=== PATIENT | male | born 1995 | race Caucasian/White ===

== ENCOUNTER 2023-11-20 02:32 | Inpatient (IN) | payer MEDICAID ==
[~2023-11-20] VITALS: Ht 170.2 cm; Wt 68.9 kg
[~2023-11-20 02:32] MED LIST: CLON0.1T2 PO
[2023-11-20 03:54] LABS: COVID AG,FIA SOURCE NASAL SWAB
[2023-11-20 03:56] LABS: SARS-COV2 (COVID) ANTIGEN,FIA Negative (Negative)
[2023-11-20] MEDS: HALOPERIDOL LACTATE 5 MG/ML VIAL IM ONE (04:12)
[2023-11-20] MEDS: LORazepam 2 MG/ML VIAL IM ONE (04:12)
[2023-11-20] MEDS: DiphenhydrAMINE HCL 50 MG/ML VIAL IM ONE (04:13)
[2023-11-20 06:05] LABS: BASOPHILS % (AUTO) 0.1 % (0.0-2.0); EOSINOPHILS % (AUTO) 0.7 % (1.0-6.0); HEMATOCRIT 38.5 % (41-53); HEMOGLOBIN 12.7 g/dL (13.5-17.5); LYMPHOCYTES # (AUTO) 1.8 K/uL (1.0-4.8); LYMPHOCYTES % (AUTO) 11.3 % (22.0-44.0); MEAN CORPUSCULAR HEMOGLOBIN 29.1 pg (26.0-34.0); MEAN CORPUSCULAR HGB CONC 33.1 G/dL (31.0-37.0); MEAN CORPUSCULAR VOLUME 88 fL (80-100); MONOCYTES # (AUTO) 1.1 K/uL (0.1-1.0); MONOCYTES % (AUTO) 7.3 % (2.0-9.0); NEUTROPHILS # (AUTO) 12.5 K/uL (1.8-7.7); NEUTROPHILS % (AUTO) 80.6 % (40.0-70.0); PLATELET COUNT (AUTO) 287 K/uL (150-450); RED BLOOD CELL COUNT(AUTO) 4.38 MIL/uL (4.50-5.90); RED CELL DISTRIBUTION WIDTH 13.3 % (11.5-14.5); WHITE BLOOD COUNT (AUTO) 15.5 K/uL (4.5-11.0)
[2023-11-20 06:54] LABS: ALCOHOL, BLOOD (SERUM) < 3 mg/dL (0-10)
[2023-11-20 07:26] LABS: ANION GAP 11 mmol/L (8-16); CALCIUM, TOTAL 8.5 mg/dL (8.8-10.5); CARBON DIOXIDE 23 mmol/L (22-29); CHLORIDE 105 mmol/L (98-107); CREATININE 0.69 mg/dL (0.60-1.30); GLOMERULAR FILTR. RATE CALC > 60 mL/min (>60); GLUCOSE,RANDOM 128 mg/dL (70-110); POTASSIUM 3.4 mmol/L (3.5-5.1); SODIUM SERUM 139 mmol/L (136-145); UREA NITROGEN, BLOOD 14 mg/dL (7-18)
[2023-11-20 07:32] LABS: ALANINE AMINOTRANSFERASE 28 U/L (12-78); ALBUMIN 3.2 g/dL (3.4-5.0); ALKALINE PHOSPHATASE 75 U/L (46-116); ASPARTATE AMINOTRANSFERASE 21 U/L (15-37); BILIRUBIN,TOTAL 0.4 mg/dL (0.1-1.0); TOTAL PROTEIN, SERUM 6.1 g/dL (6.4-8.2)
[2023-11-20 10:09] VITALS: BP 110/52; PULSE 80; RESP 20; TEMP 96.3
[2023-11-20 10:31] VITALS: BP 110/52; PULSE 80; RESP 20; TEMP 96.3
[2023-11-20] MEDS: BACITRACIN 28 GM OINTMENT TP SCH (18:16)
[2023-11-20] MEDS: QUEtiapine FUMARATE 100 MG TABLET PO SCH (20:22)
[2023-11-20] MEDS: TraZODone HCL 50 MG TABLET PO SCH (20:22)
[2023-11-20] MEDS: POTASSIUM CHLORIDE 20 MEQ ER TABLET PO ONE (21:22)
[2023-11-20 23:31] VITALS: BP 114/64; PULSE 78; RESP 18; TEMP 97.2
[2023-11-21] MEDS ORDERED: GuaiFENesin/D-METHORPHAN [SUGAR-FREE] 200-20MG/10 ML SYRUP UDCUP PO PRN (06:45)
[2023-11-21] MEDS ORDERED: LOPERAMIDE HCL 2 MG CAPSULE PO PRN (06:45)
[2023-11-21] MEDS ORDERED: PETROLATUM,WHITE 28 GM JELLY TP PRN (06:45)
[2023-11-21] MEDS ORDERED: ONDANSETRON HCL 4 MG TABLET PO PRN (06:45)
[2023-11-21] MEDS ORDERED: DOCUSATE SODIUM 100 MG CAPSULE PO PRN (06:45)
[2023-11-21] MEDS ORDERED: IBUPROFEN 400 MG TABLET PO PRN (06:45)
[2023-11-21] MEDS ORDERED: CloNIDine HCL 0.1 MG TABLET PO PRN (06:45)
[2023-11-21] MEDS ORDERED: MAG HYDROX/ALUMINUM HYD/SIMETH ES 30 ML SUSPENSION UDCUP PO PRN (06:45)
[2023-11-21] MEDS ORDERED: ACETAMINOPHEN 325 MG TABLET PO PRN (06:45)
[2023-11-21] MEDS ORDERED: MAGNESIUM HYDROXIDE SUSPENSION 30 ML UDCUP PO PRN (06:45)
[2023-11-21] MEDS ORDERED: ALBUTEROL SULFATE HFA 90 MCG/PUFF 8 GM INHALER IH PRN (06:45)
[2023-11-21] MEDS: HALOPERIDOL 5 MG TABLET PO PRN (08:10)
[2023-11-21] MEDS: LORazepam 2 MG TABLET PO PRN (08:10)
[2023-11-21 10:08] VITALS: BP 111/66; PULSE 102; RESP 18; TEMP 97.7
[2023-11-21] MEDS: NICOTINE 14 MG/24 HOUR PATCH TD PRN (12:04)
[2023-11-21 19:15] LABS: APPEARANCE,URINE CLEAR (CLEAR); BILIRUBIN,URINE NEGATIVE (NEGATIVE); COLOR,URINE LIGHT YELLOW (YELLOW); GLUCOSE, URINE (UA) NEGATIVE (NEGATIVE); KETONES,URINE NEGATIVE (NEGATIVE); LEUKOCYTE ESTERASE ,URINE NEGATIVE (NEGATIVE); NITRATE,URINE NEGATIVE (NEGATIVE); OCCULT BLOOD,URINE NEGATIVE (NEGATIVE); PH,URINE 5.5 (5.0-8.0); PH,URINE DRUG SCREEN 5.5 (5.0-8.0); PROTEIN,URINE NEGATIVE (NEGATIVE); SPECIFIC GRAVITIY, URINE 1.015 (1.003-1.030); UROBILINOGEN,URINE <=1.0 mg/dL (<=1.0)
[2023-11-21 19:21] LABS: ALCOHOL, URINE DRUG SCREEN NEGATIVE (NEGATIVE); AMPHET/METH SCREEN,URINE POSITIVE (NEGATIVE); BARBITURATE SCREEN, URINE NEGATIVE (NEGATIVE); BENZODIAZEPINES SCREEN,URINE NEGATIVE (NEGATIVE); CANNABINOID SCREEN,URINE POSITIVE (NEGATIVE); COCAINE SCREEN,URINE NEGATIVE (NEGATIVE); METHADONE SCREEN, URINE NEGATIVE (NEGATIVE); OPIATE SCREEN,URINE NEGATIVE (NEGATIVE); PHENCYCLIDINE SCREEN,URINE NEGATIVE (NEGATIVE)
[2023-11-21] MEDS: QUEtiapine FUMARATE 200 MG TABLET PO SCH (20:53)
[2023-11-21 21:43] VITALS: RESP 18
[2023-11-22 07:47] LABS: BASOPHILS % (AUTO) 0.2 % (0.0-2.0); EOSINOPHILS % (AUTO) 4.4 % (1.0-6.0); HEMATOCRIT 43.8 % (41-53); HEMOGLOBIN 14.8 g/dL (13.5-17.5); LYMPHOCYTES # (AUTO) 2.2 K/uL (1.0-4.8); LYMPHOCYTES % (AUTO) 40.7 % (22.0-44.0); MEAN CORPUSCULAR HGB CONC 33.9 G/dL (31.0-37.0); MEAN CORPUSCULAR VOLUME 89 fL (80-100); MONOCYTES # (AUTO) 0.4 K/uL (0.1-1.0); NEUTROPHILS # (AUTO) 2.6 K/uL (1.8-7.7); NEUTROPHILS % (AUTO) 47.7 % (40.0-70.0); PLATELET COUNT (AUTO) 318 K/uL (150-450); RED BLOOD CELL COUNT(AUTO) 4.94 MIL/uL (4.50-5.90); RED CELL DISTRIBUTION WIDTH 13.4 % (11.5-14.5); WHITE BLOOD COUNT (AUTO) 5.5 K/uL (4.5-11.0)
[2023-11-22 07:55] LABS: HEMOGLOBIN A1C 5.3 % (3.8-5.6)
[2023-11-22 08:16] LABS: CHOL/HDL RATIO 2.5 (4.2-7.3); THYROID STIMULATING HORMONE 0.53 uIU/mL (0.36-3.74)
[2023-11-22 09:58] VITALS: BP 109/57; PULSE 93; RESP 17; TEMP 97.8
[2023-11-22 20:25] VITALS: RESP 18
[2023-11-23 08:50] VITALS: BP 108/81; PULSE 79; RESP 18; TEMP 97
[2023-11-23 20:50] VITALS: BP 105/62; PULSE 87; RESP 18; TEMP 98.3
[2023-11-23] MEDS: ZOLPIDEM TARTRATE 10 MG TABLET PO PRN (21:55)
[2023-11-24 17:44] VITALS: BP 105/58; PULSE 94; RESP 16; TEMP 96.9
[2023-11-24 20:54] VITALS: BP 101/61; PULSE 87; RESP 18; TEMP 98
[2023-11-25] MEDS ORDERED: TRAZ-252 PO (09:10)
[2023-11-25] MEDS ORDERED: QUET200T30 PO (09:10)
[2023-11-25 12:10] VITALS: BP 91/70; PULSE 61; RESP 17; TEMP 97.8
== END 2023-11-25 13:35 | disposition home or self-care (01) | DRG 750 ==
LOC: EMS 03:03 → 3EC 07:29
PROVIDERS: ADMIT Psychiatry & Neurology Psychiatry; ATTEND Psychiatry & Neurology Psychiatry
PROC: GZHZZZZ Group Psychotherapy (ICD-10-PCS; principal; 2023-11-21)
PROC: GZ51ZZZ Individual Psychotherapy, Behavioral (ICD-10-PCS; 2023-11-21)
DX: F25.0 Schizoaffective disorder, bipolar type (principal); E83.51 Hypocalcemia; R45.851 Suicidal ideations; F15.10 Other stimulant abuse, uncomplicated; F41.9 Anxiety disorder, unspecified; D72.829 Elevated white blood cell count, unspecified; E87.6 Hypokalemia; G47.00 Insomnia, unspecified; Z59.00 Homelessness unspecified; F17.210 Nicotine dependence, cigarettes, uncomplicated; F11.90 Opioid use, unspecified, uncomplicated; F12.90 Cannabis use, unspecified, uncomplicated; Z20.822 Contact with and (suspected) exposure to COVID-19; D64.9 Anemia, unspecified; R73.9 Hyperglycemia, unspecified; Z79.899 Other long term (current) drug therapy
CPT/HCPCS: 80053; 80061; 80307; 81003; 83036; 84132; 84443; 85025; 99285; G0480; J1200; J1630; J2060

== ENCOUNTER 2023-12-14 20:01 | Emergency (ER) | payer SELFPAY ==
[~2023-12-14] VITALS: Ht 177.8 cm; Wt 76.0 kg
[~2023-12-14 20:01] MED LIST changes: -CLON0.1T2 PO; +QUET200T30 PO; +TRAZ-252 PO
[2023-12-14 20:07] VITALS: TEMP 97.8
[2023-12-14 20:44] LABS: BASOPHILS % (AUTO) 0.4 % (0.0-2.0); EOSINOPHILS % (AUTO) 1.7 % (1.0-6.0); HEMATOCRIT 39.6 % (41-53); HEMOGLOBIN 13.1 g/dL (13.5-17.5); MEAN CORPUSCULAR HEMOGLOBIN 29.5 pg (26.0-34.0); MEAN CORPUSCULAR HGB CONC 33.2 G/dL (31.0-37.0); MEAN CORPUSCULAR VOLUME 89 fL (80-100); MONOCYTES # (AUTO) 0.9 K/uL (0.1-1.0); MONOCYTES % (AUTO) 9.8 % (2.0-9.0); NEUTROPHILS # (AUTO) 6.4 K/uL (1.8-7.7); NEUTROPHILS % (AUTO) 67.1 % (40.0-70.0); PLATELET COUNT (AUTO) 343 K/uL (150-450); RED BLOOD CELL COUNT(AUTO) 4.46 MIL/uL (4.50-5.90); RED CELL DISTRIBUTION WIDTH 13.5 % (11.5-14.5); WHITE BLOOD COUNT (AUTO) 9.6 K/uL (4.5-11.0)
[2023-12-14 20:45] LABS: ALCOHOL, URINE DRUG SCREEN NEGATIVE (NEGATIVE); AMPHET/METH SCREEN,URINE POSITIVE (NEGATIVE); BARBITURATE SCREEN, URINE NEGATIVE (NEGATIVE); BENZODIAZEPINES SCREEN,URINE NEGATIVE (NEGATIVE); CANNABINOID SCREEN,URINE POSITIVE (NEGATIVE); COCAINE SCREEN,URINE NEGATIVE (NEGATIVE); METHADONE SCREEN, URINE NEGATIVE (NEGATIVE); OPIATE SCREEN,URINE NEGATIVE (NEGATIVE); PHENCYCLIDINE SCREEN,URINE NEGATIVE (NEGATIVE)
[2023-12-14 21:02] LABS: ANION GAP 8 mmol/L (8-16); CALCIUM, TOTAL 9.2 mg/dL (8.8-10.5); CARBON DIOXIDE 26 mmol/L (22-29); CHLORIDE 104 mmol/L (98-107); CREATININE 0.77 mg/dL (0.60-1.30); GLOMERULAR FILTR. RATE CALC > 60 mL/min (>60); GLUCOSE,RANDOM 120 mg/dL (70-110); SODIUM SERUM 138 mmol/L (136-145); UREA NITROGEN, BLOOD 14 mg/dL (7-18)
[2023-12-14 21:07] LABS: ALANINE AMINOTRANSFERASE 35 U/L (12-78); ALBUMIN 3.8 g/dL (3.4-5.0); ALKALINE PHOSPHATASE 117 U/L (46-116); ASPARTATE AMINOTRANSFERASE 16 U/L (15-37); BILIRUBIN,TOTAL 0.2 mg/dL (0.1-1.0); TOTAL PROTEIN, SERUM 6.9 g/dL (6.4-8.2)
[2023-12-14 21:09] LABS: ALCOHOL, BLOOD (SERUM) < 3 mg/dL (0-10)
[2023-12-14] MEDS: OLANZapine 10 MG TABLET PO ONE (23:45)
[2023-12-14] MEDS: LORazepam 2 MG TABLET PO ONE (23:45)
[2023-12-14] MEDS ORDERED: TRAZ-252 PO (23:46)
[2023-12-14] MEDS ORDERED: QUET200T30 PO (23:46)
[2023-12-14] MEDS ORDERED: ARIP15TA27 PO (23:46)
[2023-12-15] VITALS: BP 132/71; PULSE 87; RESP 20
== END 2023-12-15 00:03 | disposition home or self-care (01) ==
LOC: EMS 20:05
DX: F41.9 Anxiety disorder, unspecified (principal); R45.851 Suicidal ideations; F15.10 Other stimulant abuse, uncomplicated; F17.210 Nicotine dependence, cigarettes, uncomplicated; F12.90 Cannabis use, unspecified, uncomplicated
CPT/HCPCS: 99283; 80053; 85025; 36415; 80307; G0480